=== PATIENT | female | born 1980 | race Caucasian/White ===

== ENCOUNTER 2019-01-06 13:03 | Emergency (ER) | payer MEDICAID ==
[~2019-01-06] VITALS: Wt 65.0 kg
[~2019-01-06 13:03] MED LIST: HYDR-3498; NO MEDS; ZOF8 PO; [UNRECOGNIZED DRUG - REMARK]; denies new meds/allergies
[2019-01-06 13:09] VITALS: BP 136/73; PULSE 88; RESP 17
[2019-01-06] MEDS ORDERED: ACETAMINOPHEN 325 MG TAB PO STA (14:27)
[2019-01-06] MEDS ORDERED: TRAM50TA2 PO (15:39)
--- NOTE | 2019-01-06 15:41 | ERD ---
ER Documentation Chief Complaint Chief Complaint FOREHEAD LAC S/P GLF, NO KO, NO BLEEDING HPI 38-year-old female with no past medical surgical history who presents status post fall at home sustaining laceration to her forehead. States she slipped and fell while mopping at home. She denies LOC or profuse bleeding from forehead after fall. Since injury no nausea or vomiting. No vision changes. She otherwise reports being healthy. At time of examination patient is alert and oriented x3 and neurovascularly intact with no acute complaints beyond pain at the forehead. ROS All systems reviewed and are negative except as per history of present illness. Medications Home Meds Active Scripts Tramadol HCl (Tramadol HCl) 50 Mg Tablet, 50 MG PO Q4 PRN for PAIN, #20 TAB Prov:REAGAN RICHARD PA-C 01/06/19 Reported Medications Ondansetron Hcl* (Zofran*) 8 Mg Tab, 8 MG PO PRN 03/28/13 Hydrocodone Bit-Acetaminophen* ([place]*) 1 Tab Tab, 1 TAB PRN 03/28/13 [[place],Meds For Nausea] No Conflict Check 03/04/13 [denies new meds/allergies] No Conflict Check 12/23/12 [No Meds] No Conflict Check 12/20/12 Allergies Allergies: Coded Allergies: No Known Allergies (Verified Allergy, Unknown, 03/28/13) PMhx/Soc History of Surgery: Yes (Lap. Lu 11/2012) Anesthesia Reaction: No Hx Neurological Disorder: No Hx Respiratory Disorders: No Hx Cardiac Disorders: No Hx Psychiatric Problems: No Hx Miscellaneous Medical Probl: No Hx Alcohol Use: No Hx Substance Use: No Hx Tobacco Use: No Smoking Status: Never smoker Physical Exam Vitals Vital Signs Date Temp Pulse Resp B/P (MAP) Pulse Ox O2 O2 Flow FiO2 Time Delivery Rate 01/06/19 99.5 88 17 136/73 99 13:09 (94) Physical Exam I have reviewed the triage vital signs. Const: Well nourished, well developed, appears stated age Eyes: PERRL, no conjunctival injection HENT: NCAT, Neck supple without meningismus, 2 1/2 cm laceration to forehead, straight and approximated, no bleeding CV: RRR, Warm, well-perfused extremities RESP: CTAB, Unlabored respiratory effort GI: soft, non-tender, non-distended, no masses MSK: No gross deformities appreciated Skin: Warm, dry. No rashes Neuro: grossly non focal Psych: Appropriate mood and affect. Results 24 hrs Current Medications Medications Dose Sig/Shalonda Start Time Status Last (Trade) Ordered Route PRN Stop Time Admin Dose Reason Admin 650 mg ONCE STAT 01/06/19 DC 01/06/19 Acetaminophen PO 14:27 01/06/19 14:50 (Tylenol 14:40 Tab) Procedures/MDM 38-year-old female presents with forehead laceration. Laceration repaired with glue and Steri-Strips. Patient tolerated procedure without issue. No red flag symptoms such as loss of consciousness, nausea vomiting, neurological complaints which warrant additional workup. Laceration Repair by me: Anesthesia: None Location: forehead Tendon/Joint/Nerves: No injury Foreign body: None detected after copious irrigation and exploration Technique: Simple Interrupted Sutures Complexity: No subcutaneous sutures/mucosal repair/edge excision Post Closure Length: 2 cm Patient is appropriate for outpatient follow up. Tramadol for pain control. Strict return precautions. 48 hour wound check. Scar minimization instructions given. DISPOSITION PLAN: We discussed follow up with the patient's primary care doctor within 24 to 48 hours. Patient counseled regarding my diagnostic impression and care plan. Prior to discharge all questions answered. Pt agrees with treatment plan and understands strict return precautions. Precautionary instructions provided including instructions to return to the ER if not improving or for any worsening or changing symptoms or concerns. Departure Diagnosis: Primary Impression: Laceration Condition: Stable Patient Instructions: Laceration, Face (Skin Glue) Additional Instructions: Call your primary care doctor TOMORROW for an appointment during the next 2-3 days.See the doctor sooner or return here if your condition worsens before your appointment time. REAGAN RICHARD PA-C Jan 06, 2019 15:41
== END 2019-01-06 16:06 | disposition home or self-care (01) ==
LOC: FTE 13:03
DX: S01.81XA Laceration without foreign body of other part of head, initial encounter (principal); W01.0XXA Fall on same level from slipping, tripping and stumbling without subsequent striking against object, initial encounter; Y92.009 Unspecified place in unspecified non-institutional (private) residence as the place of occurrence of the external cause
CPT/HCPCS: 12011; Z7502; Z7610

== ENCOUNTER 2019-01-09 07:29 | Emergency (ER) | payer MEDICAID ==
[~2019-01-09] VITALS: Ht 167.6 cm; Wt 64.9 kg
[~2019-01-09 07:29] MED LIST changes: +TRAM50TA2 PO
[2019-01-09 07:32] VITALS: Ht 167.6 cm; Wt 64.9 kg
[2019-01-09] MEDS ORDERED: SOD CHLORIDE 0.9% 1,000 ML IV STA (07:42)
--- NOTE | 2019-01-09 07:52 | ERD ---
ER Documentation Chief Complaint Chief Complaint Sent from MD for evaluation GILL with lightheadedness and loss of apetite HPI This is a 38-year-old female with no past medical history presents to the emergency department complaining of a headache for the past 3 days. She states the headache is in the posterior aspect of the head. She indicated that the headache occurred after she had a mechanical slip and fall 3 days prior to [facility]. When the patient fell she had the front of her head on a tile surface. There is no loss of consciousness. She presented to the emergency department initially as she had a laceration to her left forehead that had been repaired. She indicates however since the fall she has been experiencing nausea, dizziness where she feels the room is spinning around her, headache which has been persistent. She said no fevers or shaking or chills. She denies any neck pain. She has no chest pain or pressure. Took Tylenol for the pain but this did not improve her symptoms. ROS All systems reviewed and are negative except as per history of present illness. Medications Home Meds Active Scripts Tramadol HCl (Tramadol HCl) 50 Mg Tablet, 50 MG PO Q4 PRN for PAIN, #20 TAB Prov:REAGAN RICHARD PA-C 01/06/19 Reported Medications Ondansetron Hcl* (Zofran*) 8 Mg Tab, 8 MG PO PRN 03/28/13 Hydrocodone Bit-Acetaminophen* ([place]*) 1 Tab Tab, 1 TAB PRN 03/28/13 [[place],Meds For Nausea] No Conflict Check 03/04/13 [denies new meds/allergies] No Conflict Check 12/23/12 [No Meds] No Conflict Check 12/20/12 Allergies Allergies: Coded Allergies: No Known Allergies (Verified Allergy, Unknown, 03/28/13) PMhx/Soc History of Surgery: Yes (Lap. Lu 11/2012) Anesthesia Reaction: No Hx Neurological Disorder: No Hx Respiratory Disorders: No Hx Cardiac Disorders: No Hx Psychiatric Problems: No Hx Miscellaneous Medical Probl: No Hx Alcohol Use: No Hx Substance Use: No Hx Tobacco Use: No Smoking Status: Never smoker Physical Exam Vitals Vital Signs Date Temp Pulse Resp B/P (MAP) Pulse Ox O2 O2 Flow FiO2 Time Delivery Rate 01/09/19 7 19 104/64 99 Room Air 10:00 (77) 01/09/19 69 20 113/68 98 09:00 (83) 01/09/19 98.9 69 20 129/68 99 07:32 (88) Physical Exam Constitutional:Well-developed. Well-nourished. HEENT:Normocephalic. Linear laceration, 4 cm, vertical over the left forehead which is clean dry and intact with no surrounding erythremia warmth tenderness fluctuance or induration. No scalp hematomas. No nasal septal hematoma..Pupils were equal round reactive to light. Moist mucous membranes.No tonsillar exudates. Neck: No nuchal rigidity. No lymphadenopathy. No posterior cervical spine tenderness or step-offs. Respiratory: Not using accessory muscles of respiration.Lungs were clear to auscultation bilaterally. No rhonchi. No rales. No wheezing. Cardiovascular: Regular rate regular rhythm.No murmurs. No rubs were appreciated.S1, S2 normal. Distal pulses are palpable 2+ bilaterally. GI: Abdomen was soft. Nontender. Non Distended. No pulsatile abdominal masses or bruits. No rebound. No guarding. Bowel sounds were present and normal. Muscle skeletal: Full range of motion of both the upper and lower extremities bilaterally.Normal muscle tone.No assymetrical calf tenderness or swelling. Skin: No petechia, no purpura. No lesions on the palms or the soles of the feet. No maculopapular rash. NEURO: Patient was alert, awake, orientated x3.No facial droop. Gait observed and normal with no ataxia.Speech had regular rate and rhythm. No focal neurological deficits. Result Diagram: 01/09/19 0752 01/09/19 0752 Results 24 hrs Laboratory Tests Test 01/09/19 07:52 White Blood Count 3.4 10^3/ul Red Blood Count 4.36 10^6/ul Hemoglobin 12.4 g/dl Hematocrit 37.8 % Mean Corpuscular Volume 86.7 fl Mean Corpuscular Hemoglobin 28.4 pg Mean Corpuscular Hemoglobin Concent 32.8 g/dl Red Cell Distribution Width 13.0 % Platelet Count 328 10^3/UL Mean Platelet Volume 9.9 fl Immature Granulocytes % 0.300 % Neutrophils % 51.0 % Lymphocytes % 33.8 % Monocytes % 9.3 % Eosinophils % 5.0 % Basophils % 0.6 % Nucleated Red Blood Cells % 0.0 /100WBC Immature Granulocytes # 0.010 10^3/ul Neutrophils # 1.8 10^3/ul Lymphocytes # 1.2 10^3/ul Monocytes # 0.3 10^3/ul Eosinophils # 0.2 10^3/ul Basophils # 0.0 10^3/ul Nucleated Red Blood Cells # 0.0 10^3/ul Prothrombin Time 12.7 Sec Prothrombin Time Ratio 1.0 INR International Normalized Ratio 0.94 Activated Partial Thromboplast Time 25.5 Sec Sodium Level 141 mmol/L Potassium Level 3.9 mmol/L Chloride Level 109 mmol/L Carbon Dioxide Level 23 mmol/L Anion Gap 9 Blood Urea Nitrogen 13 mg/dl Creatinine 0.65 mg/dl Est Glomerular Filtrat Rate mL/min > 60 mL/min Glucose Level 109 mg/dl Calcium Level 9.4 mg/dl Total Bilirubin 0.3 mg/dl Direct Bilirubin 0.00 mg/dl Indirect Bilirubin 0.3 mg/dl Aspartate Amino Transf (AST/SGOT) 92 IU/L Alanine Aminotransferase (ALT/SGPT) 57 IU/L Alkaline Phosphatase 35 IU/L Troponin I < 0.012 ng/ml Total Protein 7.8 g/dl Albumin 4.4 g/dl Globulin 3.40 g/dl Albumin/Globulin Ratio 1.29 Current Medications Medications Dose Sig/Shalonda Start Time Status Last (Trade) Ordered Route PRN Stop Time Admin Dose Reason Admin Sodium 1,000 ml @ Q1H STAT 01/09/19 DC 01/09/19 Chloride 1,000 mls/hr IV 07:42 08:37 01/09/19 08:41 Ondansetron 4 mg ONCE STAT 01/09/19 DC 01/09/19 HCl (Zofran IV 08:00 08:10 Inj) 01/09/19 08:01 Morphine 2 mg ONCE STAT 01/09/19 DC 01/09/19 Sulfate IV 08:00 08:10 (morphine) 01/09/19 08:01 Meclizine 25 mg ONCE ONCE 01/09/19 DC 01/09/19 HCl PO 08:00 08:10 (Antivert) 01/09/19 08:01 Ketorolac 30 mg ONCE STAT 01/09/19 DC Tromethamine IV 10:19 (Toradol) 01/09/19 10:20 Procedures/MDM This is a very pleasant 38-year-old female [facility] experiencing [facility] fall with blunt head trauma and persistent headache. The patient was placed on a radiation monitor continuous pulse oximetry and IV access was established by nursing to. The patient is CT scan of her head that was performed. There is no intracerebral hemorrhage mass- effect or midline shift. I felt the patient's symptoms were result of a concussive syndrome. She received IV fluids Antivert with improvement of her symptoms. I did obtain a 12-lead EKG tracing to rule out for atypical myocardial ischemia. 12 Lead EKG tracing ordered and reviewed by myself showed: Sinus pericardial 59 bpm and no arrhythmia. VA interval normal. QRS duration normal. No ST segment elevation No ST segment depression. No changes consistent with acute ischemia. The patient was discharged home in fair condition. They were instructed to return to the emergency department at any time if there was any worsening of their condition. The patient stated they would follow up with their PCP in the next 24-48 hours to initiate a suitable medication regimen under the care of their PCP as well as to allow their PCP to monitor any drug reactions. The patient was discharged home with prescriptions after they gave informed consent to the new medication. They were also fully informed by myself on the adverse effects and adverse drug interactions in order to provide adequate safeguards to prevent possible adverse reactions to medications. Departure Diagnosis: Primary Impression: Concussion Encounter type: initial encounter Loss of consciousness presence/duration: without LOC Qualified Codes: S06.0X0A - Concussion without loss of consciousness, initial encounter Condition: Fair LATOYA WHITE MD Jan 09, 2019 07:52
[2019-01-09] MEDS ORDERED: MECLIZINE 12.5 MG TAB PO ONE (08:00)
[2019-01-09] MEDS ORDERED: morphine 2 MG INJ IV STA (08:00)
[2019-01-09] MEDS ORDERED: ONDANSETRON 4 MG INJ IV STA (08:00)
[2019-01-09] MEDS ORDERED: KETOROLAC 30 MG INJ IV STA (10:19)
[2019-01-09] MEDS ORDERED: IBUP-1542 PO (10:23)
[2019-01-09] MEDS ORDERED: MECL12.574 PO (10:23)
[2019-01-09 10:51] VITALS: BP 132/67; PULSE 75; RESP 19
== END 2019-01-09 10:53 | disposition home or self-care (01) ==
LOC: E/R 07:29
DX: S06.0X0A Concussion without loss of consciousness, initial encounter (principal); R42 Dizziness and giddiness; W01.0XXA Fall on same level from slipping, tripping and stumbling without subsequent striking against object, initial encounter; Y92.9 Unspecified place or not applicable
CPT/HCPCS: 36415; 70450; 80053; 81025; 84484; 85025; 85610; 85730; 93005; 96374; 96375; J1885; J2270; J2405; J7030; Z7502; Z7610